=== PATIENT | female | born 1945 | race Caucasian/White ===

== ENCOUNTER 2024-12-12 12:37 | Emergency (ER) | payer MEDICARE, OTHER ==
[~2024-12-12] VITALS: Ht 157.5 cm; Wt 77.1 kg
[2024-12-12] MEDS: ACETAMINOPHEN 325 MG TABLET PO ONE (14:26)
[2024-12-12] MEDS ORDERED: TRAM50TA2 PO (15:31)
[2024-12-12] MEDS ORDERED: PSEU-298 PO (15:52)
[2024-12-12] MEDS ORDERED: AMOX-430 PO (15:52)
[2024-12-12 16:11] VITALS: BP 147/85; TEMP 98.5; O2SAT 98
== END 2024-12-12 16:12 | disposition home or self-care (01) ==
LOC: ER 12:40
DX: S02.2XXA Fracture of nasal bones, initial encounter for closed fracture (principal); S63.591A Other specified sprain of right wrist, initial encounter; S80.01XA Contusion of right knee, initial encounter; S60.211A Contusion of right wrist, initial encounter; S00.83XA Contusion of other part of head, initial encounter; S80.02XA Contusion of left knee, initial encounter; I10 Essential (primary) hypertension; W01.198A Fall on same level from slipping, tripping and stumbling with subsequent striking against other object, initial encounter; Y93.89 Activity, other specified; Y92.89 Other specified places as the place of occurrence of the external cause; Y99.8 Other external cause status
CPT/HCPCS: 70450-TC; 70486-TC; 71100-TC; 73130-TC; 73564-TC